=== PATIENT | female | born 1965 | race Caucasian/White ===

== ENCOUNTER → 2017-01-21 | Outpatient (CLI) | payer BC, OTHER | LOC: RAD 14:01 | DX: Z12.31 Encounter for screening mammogram for malignant neoplasm of breast (principal) ==

== ENCOUNTER → 2018-01-24 | Outpatient (CLI) | payer BC, OTHER | LOC: RAD 01:18 | DX: Z12.31 Encounter for screening mammogram for malignant neoplasm of breast (principal) ==

== ENCOUNTER → 2018-11-24 | Outpatient (CLI) | payer BC, OTHER | LOC: ULTRA 08:48 | DX: N83.291 Other ovarian cyst, right side (principal); N83.292 Other ovarian cyst, left side; N88.8 Other specified noninflammatory disorders of cervix uteri ==

== ENCOUNTER → 2019-01-23 | Outpatient (CLI) | payer BC, OTHER | LOC: RAD 05:46 | DX: Z12.31 Encounter for screening mammogram for malignant neoplasm of breast (principal) ==

== ENCOUNTER → 2020-01-25 | Outpatient (CLI) | payer BC, OTHER | LOC: BC 08:52 | PROVIDERS: ATTEND Neuromusculoskeletal Medicine & OMM | DX: Z12.31 Encounter for screening mammogram for malignant neoplasm of breast (principal) ==

== ENCOUNTER → 2021-01-27 | Outpatient (CLI) | payer BC, OTHER | LOC: BC 10:34 | PROVIDERS: ATTEND Neuromusculoskeletal Medicine & OMM | DX: Z12.31 Encounter for screening mammogram for malignant neoplasm of breast (principal) ==